=== PATIENT | female | born 1980 ===

== ENCOUNTER 2021-03-24 15:12 | Emergency (ER) | payer SELFPAY ==
[2021-03-24 15:18] VITALS: BP 147/76
[2021-03-24] MEDS ORDERED: SODIUM CHLORIDE 0.9% 1000 ML 1,000 ML IV ONE (16:21)
[2021-03-24] MEDS ORDERED: KETOROLAC 30 MG/1 ML INJ IV ONE (16:21)
[2021-03-24 17:08] LABS: BUN/Creatinine Ratio 24; Blood Urea Nitrogen 17 mg/dL (7-17); Hemolysis Index 79
--- NOTE | 2021-03-24 17:29 | Cat Scan Report ---
CT BRAIN: 03/24/2021 INDICATION / CLINICAL INFORMATION: sycope wt closed head injury. COMPARISON: None available. FINDINGS: BRAIN/INTRACRANIAL STRUCTURES: Unenhanced CT images of the brain demonstrate no evidence of acute abn ormality. Ventricles and sulci are normal in size and shape. There is no evidence of acute large vessel territory ischemic injury, hemorrhage, or mass. There are no abnormal extra-axial fluid collections. Mucosal thickening is present throughout the maxillary, ethmoid, and sphenoid sinuses. Air-fluid leve l is present in the right maxillary sinus, suggestive of acute sinusitis. EXTRACRANIAL STRUCTURES: Unremarkable. IMPRESSION: Negative unenhanced CT of the brain. All CT scans at this location are performed using dose reduction to ALARA by means of automated expos ure control. Signer Name: Valerio Bella MD Signed: 03/24/2021 5:25 PM Workstation Name: [id number]
[2021-03-24 17:39] LABS: Basophils # (Auto) 0.1 K/mm3 (0.0-0.1); Basophils % (Auto) 0.5 % (0.0-1.8); Eosinophils # (Auto) 1.1 K/mm3 (0.0-0.4); Eosinophils % (Auto) 9.8 % (0.0-4.3); Hematocrit 29.5 % (30.3-42.9); Hemoglobin 9.1 gm/dl (10.1-14.3); Lymphocytes # (Auto) 2.8 K/mm3 (1.2-5.4); Lymphocytes % (Auto) 25.2 % (13.4-35.0); Mean Corpuscular HGB Conc 31 % (30-34); Monocytes # (Auto) 0.7 K/mm3 (0.0-0.8); Monocytes % (Auto) 6.3 % (0.0-7.3); Platelet Count 325 K/mm3 (140-440); Red Blood Count 4.33 M/mm3 (3.65-5.03); Red Cell Distribution Width 17.9 % (13.2-15.2)
[2021-03-24 17:43] LABS: Mean Corpuscular Volume 68 fl (79-97)
--- NOTE | 2021-03-24 17:58 | XRay Report ---
CHEST 2 VIEWS INDICATION / CLINICAL INFORMATION: cough. COMPARISON: None available. FINDINGS: SUPPORT DEVICES: None. HEART / MEDIASTINUM: No significant abnormality. LUNGS / PLEURA: No significant pulmonary or pleural abnormality. No pneumothorax. ADDITIONAL FINDINGS: No significant additional findings. IMPRESSION: 1. No acute findings. Signer Name: Dashawn Zabala MD Signed: 03/24/2021 5:54 PM Workstation Name: [id number]
--- NOTE | 2021-03-24 18:25 | Emergency Department Report ---
ED Head Trauma HPI - General Chief complaint: Head Injury Stated complaint: PAIN IN BACK OF HEAD Time Seen by Provider: 03/24/21 16:15 Source: patient, family Mode of arrival: Ambulatory Limitations: Language Barrier - History of Present Illness Initial comments: Patient is a 40-year-old female who has had cough cold congestion body aches and possible fevers for the last week. 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 Patient lost consciousness and fell hit the back of her head. Patient with a possible brief loss of consciousness. Patient with mild nausea. Headache 7 out of 10 in severit y. Patient complaining of occipital headache. Patient was vaccinated against COVID-19 and received 2 shots - Related Data Previous Rx's Medication Instructions Recorded Last Taken Type Amoxicillin/Potassium Clav 1 each PO BID #20 tablet 03/24/21 Unknown Rx [Augmentin 875-125 Tablet] Benzonatate [Tessalon Perles] 100 mg PO Q8HR #10 capsule 03/24/21 Unknown Rx Fluticasone [Flonase] 1 spray NS QDAY #1 bottle 03/24/21 Unknown Rx HYDROcodone/APAP 5-325 [Barton 1 each PO Q6HR PRN #10 tablet 03/24/21 Unknown Rx 5/325] Ondansetron [Zofran Odt] 4 mg PO Q8HR #10 tab.rapdis 03/24/21 Unknown Rx Allergies/Adverse reactions: Allergies Allergy/AdvReac Type Severity Reaction Status Date / Time No Known Allergies Allergy Unverified 03/24/21 15:15 ED Review of Systems ROS: Stated complaint: PAIN IN BACK OF HEAD Other details as noted in HPI Comment: All other systems reviewed and negative ED Past Medical Hx - Past Medical History Previous Medical History?: No - Surgical History Past Surgical History?: No - Medications Home Medications: Home Medications Medication Instructions Recorded Confirmed Last Taken Type Amoxicillin/Potassium Clav 1 each PO BID #20 tablet 03/24/21 Unknown Rx [Augmentin 875-125 Tablet] Benzonatate [Tessalon Perles] 100 mg PO Q8HR #10 capsule 03/24/21 Unknown Rx Fluticasone [Flonase] 1 spray NS QDAY #1 bottle 03/24/21 Unknown Rx HYDROcodone/APAP 5-325 [Barton 1 each PO Q6HR PRN #10 tablet 03/24/21 Unknown Rx 5/325] Ondansetron [Zofran Odt] 4 mg PO Q8HR #10 tab.rapdis 03/24/21 Unknown Rx ED Physical Exam - General Limitations: Language Barrier General appearance: alert, in no apparent distress - Head Head exam: Present: atraumatic, normocephalic, other (Tenderness of the ethmoid sinus region.) - Eye Eye exam: Present: normal appearance, PERRL, EOMI - ENT ENT exam: Present: mucous membranes moist - Neck Neck exam: Present: normal inspection - Respiratory Respiratory exam: Present: normal lung sounds bilaterally. Absent: respiratory distress - Cardiovascular Cardiovascular Exam: Present: regular rate, normal rhythm. Absent: systolic murmur, diastolic murmur, rubs, gallop - GI/Abdominal GI/Abdominal exam: Present: soft, normal bowel sounds - Extremities Exam Extremities exam: Present: normal inspection - Back Exam Back exam: Present: normal inspection - Neurological Exam Neurological exam: Present: alert, oriented X3 - Psychiatric Psychiatric exam: Present: normal affect, normal mood - Skin Skin exam: Present: warm, dry, intact, normal color. Absent: rash ED Course Vital Signs 03/24/21 15:17 Temperature 98.6 F Pulse Rate 76 Respiratory 20 Rate Blood Pressure 147/76 O2 Sat by Pulse 100 Oximetry - Lab Data Result diagrams: 03/24/21 16:27 03/24/21 16:27 Lab Results 03/24/21 03/24/21 03/24/21 Range/Units 16:27 16:27 16:27 WBC 11.1 H (4.5-11.0) K/mm3 RBC 4.33 (3.65-5.03) M/mm3 Hgb 9.1 L (10.1-14.3) gm/dl Hct 29.5 L (30.3-42.9) % MCV 68 L (79-97) fl MCH 21 L (28-32) pg MCHC 31 (30-34) % RDW 17.9 H (13.2-15.2) % Plt Count 325 (140-440) K/mm3 Lymph % (Auto) 25.2 (13.4-35.0) % Mchenry % (Auto) 6.3 (0.0-7.3) % Eos % (Auto) 9.8 H (0.0-4.3) % Baso % (Auto) 0.5 (0.0-1.8) % Lymph # (Auto) 2.8 (1.2-5.4) K/mm3 Mchenry # (Auto) 0.7 (0.0-0.8) K/mm3 Eos # (Auto) 1.1 H (0.0-0.4) K/mm3 Baso # (Auto) 0.1 (0.0-0.1) K/mm3 Seg Neutrophils % 58.2 (40.0-70.0) % Seg Neutrophils # 6.4 (1.8-7.7) K/mm3 Sodium 138 (137-145) mmol/L Potassium 4.6 (3.6-5.0) mmol/L Chloride 103.5 (98-107) mmol/L Carbon Dioxide 21 L (22-30) mmol/L Anion Gap 18 mmol/L BUN 17 (7-17) mg/dL Creatinine 0.7 (0.6-1.2) mg/dL Estimated GFR > 60 ml/min BUN/Creatinine Ratio 24 % Glucose 85 (65-100) mg/dL Calcium 9.0 (8.4-10.2) mg/dL HCG, Qual Negative (Negative) - Radiology Data cc: KODI FULLER MD CT BRAIN: 03/24/2021 INDICATION / CLINICAL INFORMATION: sycope [facility] closed head injury. COMPARISON: None available. FINDINGS: BRAIN/INTRACRANIAL STRUCTURES: Unenhanced CT images of the brain demonstrate no evidence of acute abnormality. Ventricles and sulci are normal in size and shape. There is no evidence of acute large vessel territory ischemic injury, hemorrhage, or mass. There are no abnormal extra-axial fluid collections. Mucosal thickening is present throughout the maxillary, ethmoid, and sphenoid sinuses. Air-fluid level is present in the right maxillary sinus, suggestive of acute sinusitis. EXTRACRANIAL STRUCTURES: Unremarkable. IMPRESSION: Negative unenhanced CT of the brain. All CT scans at this location are performed using dose reduction to ALARA by means of automated exposure control. Signer Name: Valerio Bella MD Signed: 03/24/2021 5:25 PM Workstation Name: [id number] CHEST 2 VIEWS INDICATION / CLINICAL INFORMATION: cough. COMPARISON: None available. FINDINGS: SUPPORT DEVICES: None. HEART / MEDIASTINUM: No significant abnormality. LUNGS / PLEURA: No significant pulmonary or pleural abnormality. No pneumotho rax. ADDITIONAL FINDINGS: No significant additional findings. IMPRESSION: 1. No acute findings. Signer Name: Dashawn Zabala MD Signed: 03/24/2021 5:54 PM Workstation Name: [email or web address] - Medical Decision Making Patient is a 40-year-old female who had a syncopal episode at work. Patient is been ill with is upper respiratory type cold for the last week. CT suggestive of acute sinusitis. Patient does have some tenderness of the over the ethmoid sinus region. Likely having some postnasal drip causing her cough. Patient be started on Augmentin given medication for symptomatic relief and discharged home. Critical care attestation.: If time is entered above; I have spent that time in minutes in the direct care of this critically ill patient, excluding procedure time. ED Disposition Clinical Impression: Syncope and collapse Acute sinusitis Qualifiers: Sinusitis location: pansinusitis Recurrence: non-recurrent Qualified Code(s): J01.40 - Acute pansinusitis, unspecified Closed head injury Qualifiers: Encounter type: initial encounter Qualified Code(s): S09.90XA - Unspecified injury of head, initial encounter Disposition: 01 HOME / SELF CARE / HOMELESS Is pt being admited?: No Does the pt Need Aspirin: No Condition: Stable Instructions: Syncope (ED), Sinusitis, Adult, [id number], Syncope, [id number], Head Injury, Adult, [id number] Referrals: AKILAH LOWRY MD [Referring] - 3-5 Days Time of Disposition: 18:25 Print Language: SERBIAN
== END 2021-03-24 18:57 | disposition home or self-care (01) ==
LOC: ED 15:12
DX: S09.90XA Unspecified injury of head, initial encounter (principal); J01.90 Acute sinusitis, unspecified; R55 Syncope and collapse; W18.30XA Fall on same level, unspecified, initial encounter; Y93.89 Activity, other specified; Y92.89 Other specified places as the place of occurrence of the external cause; Y99.8 Other external cause status
CPT/HCPCS: 36415; 70450; 71046; 80048; 84703; 85025; 96361; 96374; 99284; J1885; J7030